=== PATIENT | male | born 1960 | race Two or more races ===

== ENCOUNTER 2022-08-02 22:24 | Emergency (ER) | payer MEDICAID, OTHER ==
[~2022-08-02] VITALS: Ht 190.5 cm; Wt 154.2 kg
--- NOTE | 2022-08-02 22:25 | NUR ---
JOSE ALEJANDRO 78 FROM [facility] INITIALLY FOR LOW O2 AT. WITH C/O ABD PAIN ON TRIAGE. PLACED ON BED AWAKE- ALERT RESPONDING TO VERBAL STIMULI, ATTACHED TO MONITOR SATURATING AT 95% WITH 4LIT O2 VIA NC, TACHEIPNEIC RR-25.
--- NOTE | 2022-08-02 23:08 | NUR ---
BUSINESS PROCESS SPECIALIST AT BEDSIDE
--- NOTE | 2022-08-02 23:13 | NUR ---
PATIENT HAS A MIDLINE AT LEFT UPPER ARM
--- NOTE | 2022-08-02 23:50 | NUR ---
juaquin choe: CELL: [phone]
--- NOTE | 2022-08-03 01:17 | NUR ---
urien and covid swab collected and sent to lab.
[2022-08-03 01:47] LABS: BASOPHILS # (AUTO) 0.1 K/uL (0.0-0.2); BASOPHILS % (AUTO) 0.2 % (0.0-2.0); EOSINOPHILS % (AUTO) 0.5 % (0.0-6.0); HEMATOCRIT 24 % (39-51); HEMOGLOBIN 7.2 g/dL (13.5-17.5); LYMPHOCYTES % (AUTO) 3.4 % (20.0-44.0); MEAN CORPUSCULAR HGB CONC 30 g/dl (31.0-36.0); MEAN CORPUSCULAR VOLUME 90 fL (80-96); MONOCYTES % (AUTO) 6.9 % (2.0-12.0); NEUTROPHILS # (AUTO) 26.5 K/uL (1.8-8.9); PLATELET COUNT (AUTO) 399 K/uL (150-450); RED BLOOD CELL COUNT(AUTO) 2.65 MIL/uL (4.5-6.0); WHITE BLOOD COUNT (AUTO) 29.7 K/uL (4.3-11.0)
[2022-08-03 01:57] LABS: CALCIUM, SERUM 8.8 mg/dL (8.5-10.1); CARBON DIOXIDE 27 mmol/L (21-32); CHLORIDE 99 mmol/L (98-107); CREATININE 6.8 mg/dL (0.6-1.3); GLUCOSE 136 mg/dL (74-106); POTASSIUM 4.6 mmol/L (3.5-5.1); SODIUM SERUM 135 mmol/L (136-145); UREA NITROGEN, BLOOD 53 mg/dL (7-18)
[2022-08-03 01:57] LABS: BILIRUBIN,URINE SMALL (NEGATIVE); COLOR,URINE DARK YELLOW (YELLOW); LEUKOCYTE ESTERASE ,URINE MODERATE (NEGATIVE); NITRITE, URINE POSITIVE (NEGATIVE); PH,URINE 5.5 (5.0-8.0); PROTEIN,URINE >=300 mg/dl (NEGATIVE); UGLUCOSE 100 MG/DL mg/dL (NEGATIVE); UROBILINOGEN,URINE 0.2 EU/dL (0.2)
[2022-08-03 01:58] LABS: WBC,URINE TOO NUMEROUS TO COUN /HPF (0-3)
[2022-08-03 01:59] LABS: BACTERIA,URINE Moderate /HPF (None Seen); SQUAMOUS EPITHELIAL CELL,UR Few /HPF (None Seen); YEAST,URINE Few /HPF (None Seen)
[2022-08-03 02:05] LABS: ALANINE AMINOTRANSFERASE < 6 U/L (12-78); ALBUMIN 1.6 g/dL (3.4-5.0); ALKALINE PHOSPHATASE 109 U/L (46-116); ASPARTATE AMINOTRANSFERASE 12 U/L (15-37); BILIRUBIN,DIRECT 0.3 mg/dL (0.0-0.2); BILIRUBIN,TOTAL 0.5 mg/dL (0.2-1.0)
[2022-08-03 02:08] LABS: LIPASE 1610 U/L (73-393)
[2022-08-03] MEDS ORDERED: PIPERACILLIN /TAZOBACTAM 3.375 G VIAL IV ONE (02:59)
[2022-08-03] MEDS: PIPERACILLIN /TAZOBACTAM 3.375 G in IV D5W 50 ML IV ONE (03:10)
--- NOTE | 2022-08-03 06:45 | NUR ---
[facility]- B report [phone] after change of shift MD Bañuelos [facility] eta 10:15am
--- NOTE | 2022-08-03 07:11 | NUR ---
CORRECTION: ROOM ASSIGNMENT AT [facility]:
--- NOTE | 2022-08-03 07:28 | NUR ---
last dialysis was 07/31/2022 due for dialysis today 08/03/2022
--- NOTE | 2022-08-03 07:30 | NUR ---
PT AWAKE AND VERBALLY RESPONSIVE, NOT IN ACUTE DISTRESS. PROVIDED WATER TO PT, RACHEAL WELL, NO NAUSEA/VOMITING NOTED.
[2022-08-03 08:00] VITALS: BP 113/59
--- NOTE | 2022-08-03 08:35 | NUR ---
FANY FARIA AT [facility]; NOT AVAILABLE FOR REPORT, WILL CALL BACK
--- NOTE | 2022-08-03 10:29 | NUR ---
EMT AT BEDSIDE TO PICKUP PT.
--- NOTE | 2022-08-03 10:47 | NUR ---
Patient discharged to [facility] via [facility], accompanied by 3 senior business broker. Written and verbal after care instructions given. Patient verbalizes understanding of instruction. Clinicals printed and given to senior business broker; endorsement given.
--- NOTE | 2022-08-03 10:57 | NUR ---
FANY FARIA, FROM [facility] CALLED BACK; PT REPORT GIVEN, AND INFORMED THAT PT IS EN-ROUTE TO [facility].
== END 2022-08-03 10:50 | disposition short-term general hospital (02) ==
LOC: ER 22:26
DX: K85.90 Acute pancreatitis without necrosis or infection, unspecified (principal); E11.22 Type 2 diabetes mellitus with diabetic chronic kidney disease; N18.6 End stage renal disease; Z99.2 Dependence on renal dialysis; E11.51 Type 2 diabetes mellitus with diabetic peripheral angiopathy without gangrene; Z86.718 Personal history of other venous thrombosis and embolism; N39.0 Urinary tract infection, site not specified; I13.11 Hypertensive heart and chronic kidney disease without heart failure, with stage 5 chronic kidney disease, or end stage renal disease; I48.91 Unspecified atrial fibrillation
CPT/HCPCS: 99285; 74176; 71045; 51702; 36415; 87426; 85025; 80048; 87086; 83690; 80076; 81001; 84484; 83880; 96365; 93005; 87081; C9803; J2543 ×2; J7060; J7030